=== PATIENT | female | born 1995 | race Caucasian/White ===

== ENCOUNTER 2017-07-17 23:22 | Emergency (ER) | payer SELFPAY ==
[2017-07-18] MEDS ORDERED: NS 0.9% 1000 ML* 1,000 ML IV ONE (00:29)
[2017-07-18 00:40] LABS: ABS Basophils 0.1 10^3/ul (0-0.2); ABS Eosinophils 0.1 10^3/ul (0-0.6); ABS Lymphocytes 2.8 10^3/ul (1.0-4.8); ABS Monocytes 0.8 10^3/ul (0-0.8); ABS Neutrophils 10.5 10^3/ul (1.5-7.7); ABS Nucleated RBC 0 10^3/ul; Eosinophil % 0.7 % (0-6); Hematocrit 40 % (35-47); Lymphocyte % 19.8 % (25-47); Mean Corpuscular HGB Conc 35 g/dl (31-36); Mean Corpuscular Hemoglobin 32 pg (27-31); Mean Corpuscular Volume 92 fL (80-97); Nucleated Red Blood Cells % 0.1; Platelet Count 190 10^3/ul (150-450); Red Blood Count 4.34 10^6/ul (4.0-5.4); Red Cell Distribution Width 12 % (10.5-15); White Blood Count 14.3 10^3/ul (3.5-10.8)
[2017-07-18 01:16] LABS: Urine Appearance Clear; Urine Blood Negative (Negative); Urine Color Yellow; Urine Ketones Negative (Negative); Urine Protein Negative (Negative); Urine Specific Gravity 1.015 (1.010-1.030); Urine Urobilinogen Negative (Negative)
[2017-07-18] MEDS ORDERED: Iohexol 300* (CONTRAST) 10 ML SDV IV ONE (02:29)
[2017-07-18 06:02] LABS: ABS Basophils 0 10^3/ul (0-0.2); ABS Eosinophils 0.1 10^3/ul (0-0.6); ABS Lymphocytes 2.6 10^3/ul (1.0-4.8); ABS Monocytes 0.6 10^3/ul (0-0.8); ABS Neutrophils 9.4 10^3/ul (1.5-7.7); ABS Nucleated RBC 0 10^3/ul; Eosinophil % 0.5 % (0-6); Hematocrit 37 % (35-47); Hemoglobin 13.3 g/dl (12.0-16.0); Lymphocyte % 20.3 % (25-47); Mean Corpuscular HGB Conc 36 g/dl (31-36); Mean Corpuscular Hemoglobin 33 pg (27-31); Mean Corpuscular Volume 91 fL (80-97); Nucleated Red Blood Cells % 0; Platelet Count 174 10^3/ul (150-450); Red Blood Count 4.08 10^6/ul (4.0-5.4); Red Cell Distribution Width 12 % (10.5-15); White Blood Count 12.7 10^3/ul (3.5-10.8)
--- NOTE | 2017-07-18 06:18 | ED ---
Yuko Carrillo Emily, scribed for Florentino Reyez MD on 07/18/17 at 0028 . Abdominal Pain/Female - HPI Summary HPI Summary: This patient is a 22 year old F presenting to [facility] accompanied by friend with a chief complaint of suprapubic abd cramping that began around 2114 yesterday that improved around 0000. The patient rates the pain 6/10 in severity. Symptoms aggravated by nothing. Symptoms alleviated by nothing. Patient reports nausea. Patient denies vomiting and diarrhea. Pt reports her last menstrual period on 06/27/2017. - History of Current Complaint Chief Complaint: EDAbdPain Stated Complaint: ABD PAIN Time Seen by Provider: 07/18/17 00:13 Hx Obtained From: Patient Hx Last Menstrual Period: 06/27/2017 Onset/Duration: Sudden Onset, Lasting Hours, Still Present Timing: Constant Severity Initially: Moderate Severity Currently: Moderate Pain Intensity: 6 Pain Scale Used: 0-10 Numeric Location: Suprapubic Radiates: No Character: Cramping Aggravating Factor(s): Nothing Alleviating Factor(s): Nothing Allergies/Adverse Reactions: Allergies Allergy/AdvReac Type Severity Reaction Status Date / Time No Known Allergies Allergy Verified 07/17/17 23:27 Home Medications: Home Medications Control 1 tab PO DAILY 07/18/17 [History Confirmed 07/18/17] PMH/Surg Hx/FS Hx/Imm Hx Previously Healthy: Yes Opthamlomology History: Denies: Hx Legally Blind EENT History: Denies: Hx Deafness Infectious Disease History: No Infectious Disease History: Denies: Traveled Outside the [place] in Last 30 Days - Family History Known Family History: Negative: Cardiac Disease, Diabetes - Social History Occupation: Student Lives: Dormitory/Roommates Alcohol Use: Occasionally Substance Use Type: Reports: None Smoking Status (MU): Never Smoked Tobacco Review of Systems Negative: Fever Positive: Abdominal Pain, Nausea. Negative: Vomiting, Diarrhea All Other Systems Reviewed And Are Negative: Yes Physical Exam - Summary Physical Exam Summary: VITAL SIGNS: Reviewed. GENERAL: ~Patient is a well-developed and nourished female who is lying comfortable in the stretcher. Patient is not in any acute respiratory distress. HEAD AND FACE: No signs of trauma. No ecchymosis, hematomas or skull depressions. No sinus tenderness. EYES: PERRLA, EOMI x 2, No injected conjunctiva, no nystagmus. EARS: Hearing grossly intact. Ear canals and tympanic membranes are within normal limits. MOUTH: Oropharynx within normal limits. NECK: Supple, trachea is midline, no adenopathy, no JVD, no carotid bruit, no c- spine tenderness, neck with full ROM. CHEST: Symmetric, no tenderness at palpation LUNGS: Clear to auscultation bilaterally. No wheezing or crackles. CVS: Regular rate and rhythm, S1 and S2 present, no murmurs or gallops appreciated. ABDOMEN: Soft, Mild tenderness RLQ which is deep in patient. No signs of distention. No rebound no guarding, and no masses palpated. Bowel sounds are normal. EXTREMITIES: FROM in all major joints, no edema, no cyanosis or clubbing. NEURO: Alert and oriented x 3. No acute neurological deficits. Speech is normal and follows commands. SKIN: Dry and warm Triage Information Reviewed: Yes Vital Signs On Initial Exam: Initial Vitals Temp Pulse Resp BP Pulse Ox 98.9 F 87 16 127/83 99 07/17/17 23:24 07/17/17 23:24 07/17/17 23:24 07/17/17 23:24 07/17/17 23:24 Vital Signs Reviewed: Yes Diagnostics - Vital Signs Vital Signs Temp Pulse Resp BP Pulse Ox 07/17/17 23:24 98.9 F 87 16 127/83 99 - Laboratory Result Diagrams: 07/18/17 05:45 07/18/17 00:36 Lab Statement: Any lab studies that have been ordered have been reviewed, and results considered in the medical decision making process. - CT Abdomen/Pelvis CT CT Interpretation Completed By: Radiologist - CT abdomen and pelvis reveals, per radiologist, 5.1 cm hemorrhagic and/or collapsing right ovarian cyst with small to moderate amount of pelvic free fluid. Pelvic ultrasound is recommended to exclude torsion. ED physician has reviewed this radiology report. Pending official report. - Additional Comments Diagnostic Additional Comments: Pelvic US reveals, per radiologist, 5.1 cm collapsing and/or hemorrhagic right ovarian cyst with small to moderate amount of pelvic free fluid, but no torsion. ED physician has reviewed this radiology report. Pending official report. Re-Evaluation - Re-Evaluation First Eval Re-Evaluation Time: 06:09 Change: Unchanged Comment: Discussed results with patient. Repeat exam reveals RLQ tenderness with deep palpation Abdominal Pain Fem Course/Dx - Course Course Of Treatment: Pt has mild pain. Hemodynamically stable. H&H is stable. Pt has an OBGYN appointment at home ([place]) on 07/26/2017. - Diagnoses Provider Diagnoses: Hemorrhagic ovarian cyst Discharge - Sign-Out/Discharge Documenting (check all that apply): Discharge/Admit/Transfer - Discharge home - Discharge Plan Condition: Stable Disposition: HOME Patient Education Materials: Ovarian Cyst (ED) Referrals: [facility]IAN REFERRAL [Outside] - 2 Days Additional Instructions: FOLLOW UP WITH YOU OBGYN SCHEDULED TAKE MOTRIN NEEDED FOR PAIN RETURN TO THE EMERGENCY DEPARTMENT FOR NEW OR WORSENING SYMPTOMS The documentation as recorded by the Yuko stark Emily accurately reflects the service I personally performed and the decisions made by me, Florentino Reyez MD.
[2017-07-18 06:38] VITALS: BP 105/59
--- NOTE | 2017-07-18 07:40 | RAD ---
INDICATION: Lower abdominal pain. COMPARISON: There are no prior studies available for comparison. TECHNIQUE: A CT scan of the abdomen and pelvis was performed with intravenous and oral contrast following intravenous injection of 72 ml of Omnipaque 300 nonionic contrast. Contiguous axial sections were obtained from the lung bases through the symphysis pubis. Images were reconstructed in the coronal and sagittal planes. FINDINGS: The lung bases are clear. No pleural effusion is present. The liver is normal in size without focal abnormality. No calcified gallstones are seen. The spleen is upper limits of normal in size and normal in density. The pancreas appears to be within normal limits. The kidneys and adrenal glands are normal in size. No hydronephrosis is seen. 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 The aorta is normal in caliber and demonstrates homogeneous contrast opacification. No significant enlarged retroperitoneal lymph nodes are seen. The stomach, small and large bowel appear nondistended. The appendix is within normal limits. There is a moderate to large amount retained stool. There is no evidence for diverticulitis or colitis. The uterus is anteverted and normal in size. There is a cystic structure located along the right posterolateral aspect of the uterus with suggestion of a fluid fluid level measuring 5.1 x 3.1 x 4.3 cm consistent with a complex possibly hemorrhagic cyst. There is a small a moderate amount of free intraperitoneal fluid present dependently within the pelvis, adjacent to the inferior tip of the liver and in the right paracolic gutter. No free intraperitoneal air is seen. No significant focal osseous abnormality is seen. IMPRESSION: 1. 5.1 CM COMPLEX RIGHT OVARIAN CYST SUGGESTIVE OF A HEMORRHAGIC CYST WITH A MODERATE AMOUNT OF FREE INTRAPERITONEAL FLUID IN THE PELVIS. RECOMMEND A PELVIC ULTRASOUND FOR FURTHER CHARACTERIZATION. 2. MODERATE TO LARGE AMOUNT RETAINED STOOL.
--- NOTE | 2017-07-18 07:46 | RAD ---
INDICATION: Pelvic pain evaluate for ovarian torsion. COMPARISON: Comparison is made with a prior CT of the abdomen and pelvis of the same date. TECHNIQUE: Multiple real-time transabdominal images of the pelvis were obtained. FINDINGS: The uterus is normal in size, shape and echogenicity. The uterus measured 8.6 x 4.4 x 4.9 cm. The endometrial echo measured 0.8 cm in thickness. The right ovary measured 5.5 x 4.7 x 5.1 cm. The left ovary measured 3.1 x 1.7 x 2.5 cm. There is vascular flow within both ovaries. There is a complex cyst within the right ovary measuring 5.5 x 2.9 x 5.1 cm. There is a moderate amount of free intraperitoneal fluid in the pelvis. IMPRESSION: 5.5 CM COMPLEX LIKELY HEMORRHAGIC RIGHT OVARIAN CYST WITH MODERATE AMOUNT OF FREE INTRAPERITONEAL FLUID IN THE PELVIS. RECOMMEND CLINICAL CORRELATION AND FOLLOW-UP.
== END 2017-07-18 07:01 | disposition home or self-care (01) ==
LOC: ED 23:22
DX: N83.201 Unspecified ovarian cyst, right side (principal)
CPT/HCPCS: 36415; 74177; 76856; 80053; 81003; 83690; 84702; 85025; 86140; 96360; 99283; Q9967